=== PATIENT | female | born 1975 | race Two or more races ===

== ENCOUNTER 2018-01-08 19:37 | Emergency (ER) | payer OTHER, BC ==
[2018-01-08] MEDS: IBUPROFEN 800 MG TAB PO (23:32)
== END 2018-01-09 02:31 | disposition home or self-care (01) ==
LOC: FTE 19:37
DX: S32.10XA Unspecified fracture of sacrum, initial encounter for closed fracture (principal); W18.39XA Other fall on same level, initial encounter; Y92.9 Unspecified place or not applicable
CPT/HCPCS: 72220; 81025; 99283-25